=== PATIENT | female | born 1985 | race Caucasian/White ===

== ENCOUNTER → 2017-08-02 | Outpatient (CLI) | payer SELFPAY ==
--- NOTE | 2017-08-02 11:08 | Diagnostic Imaging Report ---
PROCEDURE: US Abdomen, limited. TECHNIQUE: Multiple Realtime grayscale images were obtained over the abdomen in various projections. INDICATION: Elevated liver function test. COMPARISON: There are no prior studies available for comparison. FINDINGS: The liver is homogeneous and not enlarged. There is no focal mass involving the liver and the biliary tree is not abnormally dilated. Spectral and color flow imaging of the portal vein shows that the vein is patent and that there is normal directional flow within the vein. There is no sign of cholelithiasis or acute cholecystitis and the common bile duct is not abnormally distended. The right kidney is within normal limits. The pancreas and the proximal aorta are obscured. There is no mass or free fluid collection evident. IMPRESSION: 1. The liver is not enlarged and there is no focal abnormality involving the liver. 2. There is no acute abnormality of the right upper quadrant although the pancreas and proximal aorta are not well visualized. Dictated by: Dictated on workstation # [id number]
== END ==
LOC: RAD 08:52
PROVIDERS: ATTEND Nurse Practitioner Family
DX: R74.8 Abnormal levels of other serum enzymes (principal)
CPT/HCPCS: 76705